=== PATIENT | female | born 1965 | race Two or more races ===

== ENCOUNTER 2019-01-24 07:00 | Inpatient (IN) | payer OTHER ==
[~2019-01-24] VITALS: Ht 170.2 cm; Wt 83.9 kg
[2019-01-24] MEDS ORDERED: PROGESTERO50 MG/1 M1 PO (09:01)
[2019-01-24] MEDS ORDERED: [UNRECOGNIZED DRUG - OTHER] (09:01)
[2019-01-29] MEDS ORDERED: PROGESTERONE200 MG PO (14:15)
[2019-01-29] MEDS ORDERED: PRENATAL + DHA1 EAC1 PO (14:19)
== END 2019-02-01 11:21 | disposition home or self-care (01) | DRG 743 ==
LOC: SURH 01-29 05:43 → O/R 01-29 05:43 → OB/GYN 01-29 13:38 → SURH 01-29 15:01
PROVIDERS: ADMIT Obstetrics & Gynecology
PROC: 0UB70ZZ Excision of Bilateral Fallopian Tubes, Open Approach (ICD-10-PCS; 2019-01-29)
PROC: 0UT90ZZ Resection of Uterus, Open Approach (ICD-10-PCS; principal; 2019-01-29 08:15)
DX: D25.1 Intramural leiomyoma of uterus (principal); N93.8 Other specified abnormal uterine and vaginal bleeding; N72 Inflammatory disease of cervix uteri; D25.0 Submucous leiomyoma of uterus; N83.8 Other noninflammatory disorders of ovary, fallopian tube and broad ligament